=== PATIENT | female | born 1930 | race Caucasian/White ===

== ENCOUNTER 2016-10-18 14:52 | Emergency (ER) | payer BC, MEDICARE ==
[2016-10-18] MEDS ORDERED: Loperamide CAP* 2 MG PO ONE (15:28)
--- NOTE | 2016-10-18 15:34 | UC ---
UC General HPI - HPI Summary HPI Summary: Patient was recently hospitlized for wrist surgery. she has developed fecal incontinence and it has become loose, all within the last 4 days. she has hx of alzheimers, she is able to tell me her complaints, but timeline is not coherent , daughter is here with her. - History of Current Complaint Chief Complaint: UCGI Stated Complaint: DIARRHEA/URINARY COMPLAINT Time Seen by Provider: 10/18/16 15:09 Hx Obtained From: Patient Onset/Duration: Sudden Onset Timing: Intermittent Episodes Lasting: Onset Severity: Mild Current Severity: Mild Associated Signs & Symptoms: Positive: Diarrhea - Allergy/Home Medications Allergies/Adverse Reactions: Allergies Allergy/AdvReac Type Severity Reaction Status Date / Time No Known Allergies Allergy Verified 10/18/16 14:59 Home Medications: Home Medications Cholecalciferol [Vitamin D3] 1 tab DAILY 10/18/16 [History Confirmed 10/18/16] Donepezil TAB* [Aricept 5 MG TAB*] 1 tab DAILY 10/18/16 [History Confirmed 10/18] Glimepiride 1 tab DAILY 10/18/16 [History Confirmed 10/18/16] PMH/Surg Hx/FS Hx/Imm Hx Previously Healthy: Yes Endocrine History: Diabetes Psychological History: Other - alzheimers - Surgical History Surgical History: Yes Surgery Procedure, Year, and Place: Pins in RIGHT wrist Sep 2016 - Family History Known Family History: Positive: Diabetes - Social History Alcohol Use: None Substance Use Type: None Smoking Status (MU): Never Smoked Tobacco Review of Systems Constitutional: Negative Skin: Negative Eyes: Negative ENT: Negative Respiratory: Negative Cardiovascular: Negative Gastrointestinal: Diarrhea Genitourinary: Negative Motor: Negative Neurovascular: Negative Musculoskeletal: Arthralgia - right wrist in external fixator, Edema, Myalgia Neurological: Negative Psychological: Negative All Other Systems Reviewed And Are Negative: Yes Physical Exam Triage Information Reviewed: Yes Appearance: Well-Appearing, Well-Nourished, Pain Distress Vital Signs: Initial Vital Signs Temp 98.2 F 10/18/16 15:00 Pulse 62 10/18/16 15:00 Resp 18 10/18/16 15:00 BP 152/58 10/18/16 15:00 Pulse Ox 99 10/18/16 15:00 Vital Signs Reviewed: Yes Eye Exam: Normal Eyes: Positive: Conjunctiva Clear ENT: Positive: Hearing grossly normal, Pharynx normal, TMs normal Dental Exam: Normal Neck exam: Normal Respiratory Exam: Normal Respiratory: Positive: Chest non-tender, Lungs clear, Normal breath sounds Cardiovascular Exam: Normal Cardiovascular: Positive: RRR, No Murmur, Pulses Normal Abdominal Exam: Normal Abdomen Description: Positive: Nontender, No Organomegaly, Soft Bowel Sounds: Positive: Present Musculoskeletal Exam: Normal Neurological Exam: Normal Psychological Exam: Normal Skin Exam: Normal Course/Dx - Course Course Of Treatment: hx obtained, exam performed ,meds reviewed, Ua obtained, Urine culture sent, blood glucose obtained. Loperimide x1 given. educated about toileting schedule - Differential Dx - Multi-Symptom Provider Diagnoses: diarrhea Discharge - Discharge Plan Condition: Stable Disposition: HOME Patient Education Materials: Nutrition Tips for Relief of Diarrhea (ED) Referrals: Deborah Moralez MD [Primary Care Provider] - Additional Instructions: 1. Your urine dip was negative for infection, there was some glucose uin the urine 2. I gave you one dose of loperimide to help slow down the stool 3. I do recommend a toileting schedule, attempt to go to the bathroom every 2-3 hours to prevent incontinence. 4. I have also drawn a CBC to rule out any infection. 5. Continue to offer fluids frequently and eat a bland diet as tolerated 6. i recommend follow up with Dr Moralez if you develop any abdominal pain or other symptoms.
[2016-10-18 19:58] LABS: Hematocrit 35 % (35-47); Hemoglobin 11.8 g/dl (12.0-16.0); Mean Corpuscular HGB Conc 34 g/dl (31-36); Mean Corpuscular Hemoglobin 30 pg (27-31); Mean Corpuscular Volume 89 fL (80-97); Mean Platelet Volume 9 um3 (7.4-10.4); Red Blood Count 3.93 10^6/ul (4.0-5.4); Red Cell Distribution Width 12 % (10.5-15); White Blood Count 7.6 10^3/ul (3.5-10.8)
== END 2016-10-18 16:45 | disposition home or self-care (01) ==
LOC: UCCORT 14:52
DX: R19.7 Diarrhea, unspecified (principal); R32 Unspecified urinary incontinence; R39.15 Urgency of urination; E11.9 Type 2 diabetes mellitus without complications; G30.9 Alzheimer's disease, unspecified; F02.80 Dementia in other diseases classified elsewhere, unspecified severity, without behavioral disturbance, psychotic disturbance, mood disturbance, and anxiety
CPT/HCPCS: 36415; 81003; 85025; 87086; 99202; A9270-GY; G0463

== ENCOUNTER 2018-02-12 13:40 | Emergency (ER) | payer BC ==
[2018-02-12 13:51] VITALS: BP 158/58
--- NOTE | 2018-02-12 14:02 | UC ---
Altered Mental Status HPI - HPI Summary HPI Summary: 87 year old woman comes in today with a chief complaint of increased confusion. Patient was in a fdc and she has a history of Alzheimer's. Today she failed to show up for medial and they found her in her room negative confused. This is a increased level of confusion compared to baseline confusion. No known fevers cough no known injuries. No focal neurologic deficits. Medical provider covering the patient at the fdc requests a urinalysis for potential UTI causing the increased confusion. Patient is here with a family member. - History Of Current Complaint Chief Complaint: UCGeneralIllness Stated Complaint: CONFUSION Time Seen by Provider: 02/12/18 13:44 Pain Intensity: 0 - Allergies/Home Medications Allergies/Adverse Reactions: Allergies Allergy/AdvReac Type Severity Reaction Status Date / Time lisinopril Allergy Unknown Unknown Verified 02/12/18 14:23 Reaction Details metformin Allergy Unknown Unknown Verified 02/12/18 14:23 Reaction Details PMH/Surg Hx/FS Hx/Imm Hx Previously Healthy: Yes - DEMENTIA Endocrine History: Diabetes - Surgical History Surgical History: Yes Surgery Procedure, Year, and Place: Pins in RIGHT wrist Sep 2016 - Family History Known Family History: Positive: Diabetes - Social History Alcohol Use: None Substance Use Type: None Smoking Status (MU): Never Smoked Tobacco Review of Systems All Other Systems Reviewed And Are Negative: Yes Constitutional: Positive: Other - CONFUSION. Negative: Fever Skin: Positive: Negative Eyes: Positive: Negative ENT: Positive: Negative Respiratory: Positive: Negative Cardiovascular: Positive: Negative Gastrointestinal: Negative: Vomiting Genitourinary: Positive: Other - UNKNOWN Motor: Positive: Negative Neurovascular: Positive: Negative Musculoskeletal: Positive: Negative Neurological: Positive: Negative Psychological: Positive: Negative Is Patient Immunocompromised?: No Physical Exam Triage Information Reviewed: Yes Appearance: Well-Appearing, No Pain Distress, Well-Nourished Vital Signs: Initial Vital Signs Temp 96.8 F 02/12/18 13:44 Pulse 65 02/12/18 13:44 Resp 20 02/12/18 13:44 BP 158/58 02/12/18 13:44 Pulse Ox 100 02/12/18 13:44 Vital Signs Reviewed: Yes Eye Exam: Normal Eyes: Positive: Conjunctiva Clear Neck exam: Normal Neck: Positive: Supple Respiratory: Positive: Lungs clear, Normal breath sounds, No respiratory distress Cardiovascular: Positive: RRR Abdomen Description: Positive: Nontender, Soft. Negative: CVA Tenderness (R), CVA Tenderness (L) Musculoskeletal Exam: Normal Musculoskeletal: Positive: Strength Intact, ROM Intact Neurological Exam: Normal Neurological: Positive: Alert, Muscle Tone Normal Psychological Exam: Normal Psychological: Positive: Age Appropriate Behavior - MILD CONFUSION WHICH IS NOT ABNORMAL FOR THE PATIENT Skin Exam: Normal AMS Course/Dx - Course Course Of Treatment: A urine does not show any leukocyte Estrace. Trace of blood and 3+ glucose. No obvious sign of UTI at this time. Fingerstick blood sugar was 381. I discussed with the daughter her preferences as far as further treatment. I discussed going to the emergency department for further evaluation of her confusion and her high blood sugar. At this time the daughter prefers to follow up with the primary care doctor. Patient gets worse she should go the emergency department. - Differential Dx/Clinical Impression Provider Diagnosis: Confusion, Hyperglycemia Discharge - Sign-Out/Discharge Documenting (check all that apply): Patient Departure All imaging exams completed and their final reports reviewed: No Studies - Discharge Plan Condition: Stable Disposition: HOME Patient Education Materials: Diabetic Hyperglycemia (ED), Altered Mental Status (ED) Referrals: Deborah Moralez MD [Primary Care Provider] - Additional Instructions: FOLLOW UP WITH YOUR PRIMARY CARE MEDICAL DOCTOR TODAY. RECHECK YOUR BLOOD SUGAR TODAY. GO TO THE EMERGENCY DEPARTMENT FOR ANY CONFUSION, FEVER, WEAKNESS, YOU FEEL ILL OR ANY QUESTIONS OR CONCERNS. - Billing Disposition and Condition Condition: STABLE Disposition: Home
== END 2018-02-12 14:44 | disposition home or self-care (01) ==
LOC: UCCORT 13:40
DX: R41.0 Disorientation, unspecified (principal); E11.65 Type 2 diabetes mellitus with hyperglycemia; G30.9 Alzheimer's disease, unspecified; F02.80 Dementia in other diseases classified elsewhere, unspecified severity, without behavioral disturbance, psychotic disturbance, mood disturbance, and anxiety; Z88.8 Allergy status to other drugs, medicaments and biological substances
CPT/HCPCS: 81003; 87077; 87086; 99211; G0463